=== PATIENT | male | born 1960 | race Caucasian/White ===

== ENCOUNTER 2022-08-31 19:47 | Emergency (ER) | payer OTHER ==
[~2022-08-31] VITALS: Ht 177.8 cm; Wt 79.4 kg
[2022-08-31] MEDS ORDERED: HYDROCODON-ACE1 EA10 PO (23:06)
== END 2022-09-01 00:05 | disposition home or self-care (01) ==
LOC: ED 19:47
DX: T14.8XXA Other injury of unspecified body region, initial encounter (principal); W11.XXXA Fall on and from ladder, initial encounter
CPT/HCPCS: 72220; 73502; 73650; 96374; 96375; 99283-25; A9270; J1170; J1885; J3360